=== PATIENT | male | born 1990 | race Caucasian/White ===

== ENCOUNTER 2022-04-03 10:33 | Emergency (ER) | payer BC ==
[~2022-04-03] VITALS: Ht 170.2 cm; Wt 78.0 kg
--- NOTE | 2022-04-03 10:49 | NUR ---
CAME TO ER C/O LEFT ELBOW PAIN S/P SLIP AND FALL 3 DAYS AGO. SWELLING AND BRUISING NOTED. LIMITED ROM. PT AMBULATED TO BED WITH STEADY GAIT. VSS. AWAITING MD ORDERS.
--- NOTE | 2022-04-03 11:37 | NUR ---
EMT AT BEDSIDE FOR SPLINT APPLICATION.
--- NOTE | 2022-04-03 11:47 | NUR ---
Patient discharged to home in stable condition. Written and verbal after care instructions given. Patient verbalizes understanding of instruction.
[2022-04-03 11:48] VITALS: BP 132/80
== END 2022-04-03 11:50 | disposition home or self-care (01) ==
LOC: ER 10:37
DX: S52.022A Displaced fracture of olecranon process without intraarticular extension of left ulna, initial encounter for closed fracture (principal); Z60.2 Problems related to living alone; W18.30XA Fall on same level, unspecified, initial encounter; Y93.89 Activity, other specified; Y92.89 Other specified places as the place of occurrence of the external cause; Y99.8 Other external cause status
CPT/HCPCS: 73080-TC